=== PATIENT | female | born 1975 | race Caucasian/White ===

== ENCOUNTER 2018-02-19 19:31 | Emergency (ER) | payer MEDICAID, SELFPAY ==
[2018-02-19 19:51] VITALS: BP 141/77; PULSE 93; RESP 20; TEMP 36.8; O2SAT 99; BMI 35.4
--- NOTE | 2018-02-19 20:04 | HMH.EDUTC ---
[facility] [place] Clinical Impression: Cellulitis Qualifiers: Site of cellulitis: extremity Site of cellulitis of extremity: upper extremity Laterality: right Qualified Code(s): L03.113 - Cellulitis of right upper limb Disposition: Home, Self-Care Condition on Discharge: Good Instructions: DI for Cellulitis -- Adult Additional Instructions: * Start antibiotic(s) immediately and be sure to take as ordered for the FULL length of time although you should start to see improvement over the next 24-48 hours. * Monitor closely. Outlined redness so that you can monitor easier. FU immediately for new or worsening symptoms ( including but not limited to redness, swelling, red streaking, fever, chills). * Warm epsom compresses 15 min 3-4 times a day * never squeeze or pop these on your own. Seek immediate medical attention next time these occur. * Monitor Temp. Seek treatment if fever develops. * For pain/inflammation: Tylenol every 4 hours as needed no more then 5 times a day or 4000mg in 24 hours and/or ibuprofen every 6 hours as needed no more then 3200mg in 24 hours (as long as your primary care doctor has told you that it is ok to take both) for aches/pain. Prescriptions: Sulfamethoxazole/Trimethoprim [Bactrim 400-80 mg (SS) Tablet] 1 tab PO BID #20 tab Referrals: Madiha Salinas MD [Primary Care Provider] - (Call office tomorrow. [facility] Diagnosed cellulitis. Wound culture sent. Started on bactrim. Need 48-72 hour follow up.) Time of Disposition: 20:11 Medical Decision Making - Valeriano Inquiry Pt receiving controlled substance: No Vital Signs: 02/19/18 19:51 Temperature 98.2 F Temperature Source Temporal Artery Scan Pulse Rate [Brachial] 93 H Respiratory Rate 20 Blood Pressure [Right Arm] 141/77 Blood Pressure Mean [Right Arm] 98 Blood Pressure Position [Right Arm] Sitting 02 Sat by Pulse Oximetry 99 Oxygen Delivery Method Room Air Orders (Tests/Meds): ORDERS Category Date Time Status Wound Culture and Gram Stain Stat Micro 02/19/18 20:08 Ordered [facility] [place] HPI - General Stated complaint: spot on right arm Time Seen by Provider: 02/19/18 20:04 Mode of Arrival: Ambulatory Source of Information: Patient Limitations: No Limitations Description of Symptoms (Recalled from Triage Doc. by RN): POSSIBLE SPIDER BITE ON RT ARM X 2 DAYS HEENT Symptoms (Recalled from RN notes): No Resp Symptoms (Recalled from RN notes): No Skin Symptoms (Recalled from RN notes): Yes MS Symptoms (Recalled from RN notes): No Functional Status (Recalled from RN notes): NA - History of Present Illness Provider Complaint: c/o unknown bite to right upper arm. First noticed day before yesterday. thought flea bite. Not itchy. More red and swollen yesterday morning. throughout the day yesterday, center scabbed and starting leaking clear fluid. More red and tender today. No fever, aches, chills. Hasn't taken or tried anything for symptoms. - Related Data Home Medications Medication Instructions Recorded Confirmed Escitalopram Oxalate [Escitalopram 10 mg PO DAILY 02/19/18 02/19/18 Oxalate] Trazodone HCl 50 mg PO DAILY 02/19/18 02/19/18 Previous Rx's Medication Instructions Recorded Sulfamethoxazole/Trimethoprim 1 tab PO BID #20 tab 02/19/18 [Bactrim 400-80 mg (SS) Tablet] Allergies Allergy/AdvReac Type Severity Reaction Status Date / Time STEROIDS Allergy Unknown Uncoded 11/13/17 14:29 - Worker's Comp Is this a Worker's Comp case?: No [facility] History I have reviewed the patient's past medical history: Yes Medical History: Reports:: Anxiety, Depression Denies:: Diabetes Mellitus Type 1, Diabetes Mellitus Type 2, Hypertension Other Surgeries: Yes: Tubal Ligation - Social History Smoking Status: Current every day smoker Alcohol Intake: never - Psychiatric History Expresses thoughts of harming self/others: None Suicide Plan Description: No Plan ROS Obtained: Yes Systems reviewed as appropriate &
--- NOTE | 2018-02-19 20:08 | ED_ITS ---
[facility] – [place] Disposition Clinical Impression: Cellulitis Qualifiers: Site of cellulitis: extremity Site of cellulitis of extremity: upper extremity Laterality: right Qualified Code(s): L03.113 - Cellulitis of right upper limb Disposition: Home, Self-Care Condition on Discharge: Good Instructions: DI for Cellulitis -- Adult Additional Instructions: * Start antibiotic(s) immediately and be sure to take as ordered for the FULL length of time although you should start to see improvement over the next 24-48 hours. * Monitor closely. Outlined redness so that you can monitor easier. FU immediately for new or worsening symptoms ( including but not limited to redness , swelling, red streaking, fever, chills). * Warm epsom compresses 15 min 3-4 times a day * never squeeze or pop these on your own. Seek immediate medical attention next time these occur. * Monitor Temp. Seek treatment if fever develops. * For pain/inflammation: Tylenol every 4 hours as needed no more then 5 times a day or 4000mg in 24 hours and/or ibuprofen every 6 hours as needed no more then 3200mg in 24 hours (as long as your primary care doctor has told you that it is ok to take both) for aches/pain. Prescriptions: Sulfamethoxazole/Trimethoprim [Bactrim 400-80 mg (SS) Tablet] 1 tab PO BID #20 tab Referrals: Madiha Salinas MD [Primary Care Provider] - (Call office tomorrow. [facility]. Diagnosed cellulitis. Wound culture sent. Started on bactrim. Need 48- 72 hour follow up.) Time of Disposition: 20:11 Medical Decision Making - Valeriano Inquiry Pt receiving controlled substance: No Vital Signs: 02/19/18 19:51 Temperature 98.2 F Temperature Source Temporal Artery Scan Pulse Rate [Brachial] 93 H Respiratory Rate 20 Blood Pressure [Right Arm] 141/77 Blood Pressure Mean [Right Arm] 98 Blood Pressure Position [Right Arm] Sitting 02 Sat by Pulse Oximetry 99 Oxygen Delivery Method Room Air Orders (Tests/Meds): ORDERS Category Date Time Status Wound Culture and Gram Stain Stat Micro 02/19/18 20:08 Ordered [facility] – [place] HPI - General Stated complaint: spot on right arm Time Seen by Provider: 02/19/18 20:04 Mode of Arrival: Ambulatory Source of Information: Patient Limitations: No Limitations Description of Symptoms (Recalled from Triage Doc. by RN): POSSIBLE SPIDER BITE ON RT ARM X 2 DAYS HEENT Symptoms (Recalled from RN notes): No Resp Symptoms (Recalled from RN notes): No Skin Symptoms (Recalled from RN notes): Yes MS Symptoms (Recalled from RN notes): No Functional Status (Recalled from RN notes): NA - History of Present Illness Provider Complaint: c/o unknown bite to right upper arm. First noticed day before yesterday. thought flea bite. Not itchy. More red and swollen yesterday morning. throughout the day yesterday, center scabbed and starting leaking clear fluid. More red and tender today. No fever, aches, chills. Hasn't taken or tried anything for symptoms. - Related Data Home Medications Medication Instructions Recorded Confirmed Escitalopram Oxalate [Escitalopram 10 mg PO DAILY 02/19/18 02/19/18 Oxalate] Trazodone HCl 50 mg PO DAILY 02/19/18 02/19/18 Previous Rx's Medication Instructions Recorded Sulfamethoxazole/Trimethoprim 1 tab PO BID #20 tab 02/19/18 [Bactrim 400-80 mg (SS) Tablet] Allergies Allergy/AdvReac Type Severity Reaction Statu
[2018-02-19 20:12] VITALS: BP 141/77; PULSE 93; RESP 20; TEMP 36.8; O2SAT 99
== END 2018-02-19 20:13 | disposition home or self-care (01) ==
PROVIDERS: Emergency Provider Nurse Practitioner Family; PCP Family Medicine
DX: L03.113 Cellulitis of right upper limb (principal); F41.8 Other specified anxiety disorders; F17.210 Nicotine dependence, cigarettes, uncomplicated
CPT/HCPCS: 87070; 87205; 99201

== ENCOUNTER 2023-05-17 17:07 | Emergency (ER) | payer BC, SELFPAY ==
[2023-05-17 17:20] VITALS: BP 125/60; PULSE 75; RESP 20; TEMP 36.8; O2SAT 98; BMI 35.4
--- NOTE | 2023-05-17 17:25 | EXP.UTC ---
Discharge Plan Disposition Patient Disposition: Home, Self-Care Condition: Good Prescriptions Prescriptions: New clindamycin HCl 300 mg capsule 300 mg PO Q8H Qty: 30 0RF ciprofloxacin HCl [Cipro] 500 mg tablet 500 mg PO BID 10 Days Qty: 20 0RF mupirocin 2 % ointment 1 applic topical TID 7 Days Qty: 15 0RF No Action trazodone 50 MG tablet 50 mg PO DAILY escitalopram oxalate 10 MG tablet 10 mg PO DAILY Label Comments: sulfamethoxazole-trimethoprim 1 EACH tablet 1 tab PO BID Qty: 20 0RF Referrals Follow up/Referrals: Provider,Referral, [Primary Care Provider] - See instructions Eden Luong DPM [Staff Physician] - See instructions Activity Restrictions/Add. Instructions Additional Instructions/Restrictions: Take the medications as directed. Keep the wound clean and dry. Keep a dressing on it if you are going to be getting it dirty. Watch the wound for signs of infection, such as redness, swelling, drainage, fever. etc. Take tylenol or ibuprofen for pain. Follow up with your regular doctor. GO TO THE ER FOR ANY WORSENING SYMPTOMS OR CONCERNS. Clinical Impressions Clinical Impression: Cellulitis, Ulcer of right foot Instructions Patient Instructions: Cellulitis Discharge ED Provider: Nghia Currie [facility] [place] General Stated complaint: Rt foot pain swelling Time Seen by Provider: 05/17/23 17:25 History of Present Illness Provider Complaint: She states that she has a wound on the bottom of her right foot. This has been present for the past 2 weeks. She states that she got an abrasion in that area, then she went on vacation and got in the ocean. The wound became infected then. She has tried to treat it will OTC meds, but it is getting worse instead of better. She is not a known diabetic. Related Data Home Medications Medication Instructions Recorded Confirmed escitalopram oxalate 10 mg tablet 10 mg PO DAILY Depression 02/19/18 02/19/18 trazodone 50 mg tablet 50 mg PO DAILY Pain 02/19/18 02/19/18 Previous Rx's Medication Instructions Recorded sulfamethoxazole 400 1 tab PO BID #20 tabs 02/19/18 mg-trimethoprim 80 mg tablet ciprofloxacin HCl 500 mg tablet 500 mg PO BID 10 days #20 tabs 05/17/23 (Cipro) clindamycin HCl 300 mg capsule 300 mg PO Q8H #30 caps 05/17/23 mupirocin 2 % topical ointment 1 applic topical TID 7 days #15 05/17/23 grams Allergies Allergy/AdvReac Type Severity Reaction Status Date / Time STEROIDS Allergy Unknown Uncoded 11/13/17 14:29 [facility] Disclaimer: The information contained in this section may have been updated after the patient was seen, as this information can be updated by other users. Social History Smoking Status: Current every day smoker alcohol intake: never current occupational status: unemployed Travel in the last 8 weeks: None ROS Obtained: Yes All systems reviewed & no additional complaints except as documented Constitutional Constitutional: Denies chills and Denies fever(s) Eyes Eyes: Denies eye discharge ENT Ears, Nose, Mouth, and Throat: Denies dizziness, Denies otalgia and Denies sore throat Cardiovascular Cardiovascular: Denies chest pain Respiratory Respiratory: Denies shortness of breath, Denies chest congestion, Denies cough, Denies stridor and Denies wheezing Gastrointestinal Gastrointestingal: Denies nausea or vomiting Musculoskeletal Musculoskeletal: Reports system reviewed and no additional complaints, except as documented and Denies arthralgias Integumentary/Breasts Skin/Breast: Reports as per HPI Neurologic Neurologic: Denies dizziness and Denies paresthesias Allergic/Immunologic Allergic/Immunologic: Denies wheezing Physical Exam General General appearance: alert and in no apparent distress Head Head exam: atraumatic, normocephalic and normal inspection Eye Eye exam: Present normal appearance,
[2023-05-17 17:40] VITALS: BP 125/60; PULSE 75; RESP 20; TEMP 36.8; O2SAT 98
== END 2023-05-17 18:13 | disposition home or self-care (01) ==
PROVIDERS: Emergency Provider Nurse Practitioner Family
DX: L97.511 Non-pressure chronic ulcer of other part of right foot limited to breakdown of skin (principal); L03.115 Cellulitis of right lower limb; B95.61 Methicillin susceptible Staphylococcus aureus infection as the cause of diseases classified elsewhere; F17.210 Nicotine dependence, cigarettes, uncomplicated
CPT/HCPCS: 87070; 87077; 87186; 87205; 96372; 99204; 99212; G0463; J0696